=== PATIENT | male | born 1960 | race Caucasian/White ===

== ENCOUNTER 2020-10-26 05:22 | Observation (INO) ==
--- NOTE | 2020-08-20 15:47 | PAT Medication Instructions ---
Medication Instructions Date of Service August 20, 2020 Home Medications metformin 1,000 mg tablet 1,000 mg PO BID paroxetine HCl 30 mg tablet 30 mg PO QAM aspirin [Aspir-81] 81 mg PO HS atorvastatin [Lipitor] 40 mg PO HS ezetimibe [Zetia] 10 mg PO HS lisinopril 2.5 mg PO QAM DO NOT take the morning of surgery lisinopril 2.5 mg PO QAM metformin 1,000 mg tablet 1,000 mg PO BID Take morning of surgery With a small sip of water, OTHERWISE NOTHING TO EAT OR DRINK AFTER MIDNIGHT: paroxetine HCl 30 mg tablet 30 mg PO QAM Take evening before surgery metformin 1,000 mg tablet 1,000 mg PO BID aspirin [Aspir-81] 81 mg PO HS (unless surgeon directs otherwise) atorvastatin [Lipitor] 40 mg PO HS ezetimibe [Zetia] 10 mg PO HS Other Notes If you have any questions please call us at [phone] or [phone] or or [phone]
--- NOTE | 2020-08-22 11:07 | Anesthesiology Consultation ---
Date of Service August 22, 2020 Assessment & Plan (1) Encounter for pre-operative examination: Chart Review Chart Review: Acceptable Risk for Surgery (pending preop Covid testing results ) and Patient seen in Pre Admission Testing - Check BSG AM DOS Per PAT appointment 08/22/2020, patient resides in [facility]. Local travel only. No known Covid infection in the past 90 days. Patient vaccinated for Covid. No known Covid positive contacts or Covid related symptoms. Preop Covid testing scheduled 10/02/20= will await results. Educated on importance of self quarantining, social distancing and wearing mask in public both for the patient after Covid testing done Teaching & Discussion Pre-Anesthesia Teaching/Discussion Notes: Instructed NPO after midnight before surgery,except medications with 15 cc of water. Medication instructions provided according to the [facility] guidelines. History Surgery Operation Date: 10/04/20 07:30 Proposed Procedures p Right Total Knee Arthroplasty - Nikc Mohr MD Height/Weight Height: 5 ft 8 in Weight: 99.9 kg Allergies Allergy/AdvReac Type Severity Reaction Status Date / Time shrimp Allergy Mild Vomiting Verified 08/20/20 14:50 lobster Allergy Mild Vomiting Uncoded 08/20/20 14:50 Medications Home Medications Medication Instructions Recorded Confirmed Last Taken metformin 1,000 mg tablet 1,000 mg PO BID 06/23/19 08/20/20 Unknown paroxetine HCl 30 mg tablet (Paxil) 30 mg PO QAM 06/23/19 08/20/20 Unknown aspirin 81 mg tablet,delayed 81 mg PO HS 08/20/20 08/20/20 Unknown release atorvastatin 40 mg tablet (Lipitor) 40 mg PO HS 08/20/20 08/20/20 Unknown ezetimibe 10 mg tablet (Zetia) 10 mg PO HS 08/20/20 08/20/20 Unknown lisinopril 2.5 mg tablet 2.5 mg PO QAM 08/20/20 08/20/20 Unknown Past Medical History Medical History Anxiety Diabetes mellitus, type 2 Glucose stable Fatty liver History of COVID-19 diagnosed 12/2019 @ State testing site @ [place]--loss of taste and smell, sinus issues--no issues now Sleep apnea cpap Tinnitus of left ear Exercise / Class Metabolic Activity II 4-5 Yardwork/Stairs/Walk up hill (one flight of stairs - no chest pain or SOB ) Past Family History Family History Other No family history of adverse response to anesthesia Past Surgical History Surgical History History of adenoidectomy History of cholecystectomy History of colonoscopy History of knee surgery right knee cap History of partial thyroidectomy right side removed d/t goiter History of shoulder surgery bilateral shoulders History of wisdom tooth extraction Past Anesthesia History No Hx of Anesthesia Complications and No Family Hx of Anesthesia Complications History of PONV No Hx of PONV and No Hx of Motion Sickness Social History Smoking Status: Former smoker tobacco type: smokeless tobacco Do You Dip or Chew Tobacco: Yes (1 can every 3 days) Smoking End Date: quit 20yrs ago Hx Alcohol Use: Yes alcohol intake frequency: a few times a week Hx Substance Use: No substance use type: does not use Review of Systems Rare reflux Patient denies chest pain, shortness of breath, dyspnea on exertion, cough, wheezing, palpitations. No hx of seizures, stroke, NH. No hx of blood clots or blood transfusions Physical Exam Vital Signs VITALS BP 134/81 P 68 TEMP 98.4 SP02 97% RESP 16 Constitutional no acute distress ENMT Mouth: no TMJ clicking Thyromental Distance: > or= 3.5 Finger Breadths (3.5) Mallampati Class: III Neck + limited neck extension (significant ) and + facial hair (advised patient to shave/trim sharma ) Respiratory normal respiratory effort; no respiratory distress Auscultation: lungs clear to auscultation bilaterally; no wheezes Cardiovascular Rate/Rhythm: regular rate and regular rhythm Heart Sounds: no murmur Vessels: no carotid bruit Musculoskeletal Spine: no pain with cervical ROM Extremities: extremities normal to inspection Psychiatric Orientation: alert Lab Results Anesthesia Preop Results Results Anesthesia Widget: WBC 6.61 K/uL (4.8-10.8) 08/22/20 Hgb 13.3 g/dL (14.0-18.0) L 08/22/20 Hct 39.1 % (42-52) L 08/22/20 Plt 192 K/uL (130-400) 08/22/20 Na 139 mmol/L (136-145) 08/22/20 K 4.1 mmol/L (3.5-5.1) 08/22/20 Cl 108 mmol/L (98-107) H 08/22/20 CO2 27 mmol/L (21-32) 08/22/20 BUN 16 mg/dl (7-18) 08/22/20 Creat 1.08 mg/dl (0.6-1.4) 08/22/20 Glucose Level 220 mg/dl (70-99) H 08/22/20 PT 10.4 Seconds (9.0-12.0) 08/22/20 PTT 25.6 Seconds (21.0-31.0) 08/22/20 INR 1.0 (0.9-1.1) 08/22/20 HA1c 7.3 % (4.5-5.6) H 08/22/20 Urine Color Yellow 08/22/20 Urine Appearance Clear (Clear) 08/22/20 Urine pH 6.5 (4.5-7.5) 08/22/20 Urine Specific [place] 1.022 (1.000-1.030) 08/22/20 Urine Protein Negative (Negative) 08/22/20 Urine Glucose (UA) 3+ (Negative) H 08/22/20 Urine Ketones Negative (Negative) 08/22/20 Urine Blood Negative (Negative) 08/22/20 Urine Nitrite Negative (Negative) 08/22/20 Urine Bilirubin Negative (Negative) 08/22/20 Urine Urobilinogen Negative (Negative) 08/22/20 Urine Leukocyte Esterase Negative (Negative) 08/22/20 Blood Type A Positive 08/22/20 Antibody Screen NEGATIVE 08/22/20 Lab Comments: Surgeon's office informed of glucose Testing Electrocardiogram Date: 08/22/20 Findings: + SB @ (59bpm) Otherwise normal EKG per cardio. Chest X-Ray Date: 08/22/20 Findings: + NAD
--- NOTE | 2020-09-28 15:12 | History and Physical Report ---
DATE OF ADMISSION: 10/04/2020 CHIEF COMPLAINT: Bilateral knee pain and discomfort, right side greater than left. HISTORY OF PRESENT ILLNESS: The patient is a 60-year-old gentleman who has had a several-year histor y of increasing bilateral knee pain and discomfort. He has been through extensive conservative treat ment including injections, which were pretty successful initially, but become less successful over ti me. Both knees hurt. The right knee bothers him more than the left. He would like to consider a singletary rgical intervention. He would like to proceed with the right knee. Pain is mostly medial, but some global pain. The more he is up and on his knee, the more it hurts. He does have a history of open k nee surgery on this side 20 years ago. PAST MEDICAL HISTORY: 1. Elevated cholesterol. 2. Sleep apnea with CPAP machine. 3. Anxiety. 4. Diabetes x11 years. ALLERGIES: None. CURRENT MEDICATIONS: Include, 1. Metformin. 2. Zetia. 3. Lipitor. 4. Lisinopril. 5. Paroxetine. SOCIAL HISTORY: Significant for a 60-year-old gentleman. He is from [place]. He works for [employer]. . One drink per week. Chews snuff. FAMILY HISTORY: Significant for diabetes. REVIEW OF SYSTEMS: Significant for diabetes for 10 or 11 years. A1c is 7.3. No chest pain or short ness of breath. No history of DVT or PE. He does have sleep apnea. PHYSICAL EXAMINATION: GENERAL: Shows a pleasant middle-aged male. Looks to be in reasonably good health. HEENT: Benign. NECK: Supple, no lymphadenopathy. LUNGS: Clear to auscultation. HEART: Has a regular rate and rhythm. ABDOMEN: Soft, nontender, nondistended. EXTREMITIES: Grossly neurovascularly intact except as follows: Examination of both knees revealed p atient ambulates independently. He limps a little bit more on the right knee. He has got varus alig nment to the right knee with bony hypertrophy medially. Small knee effusion. Range of motion about 5-125. No instability. Examination of the left knee reveals slight varus alignment. Minimal knee effusion. Tender to palpa tion medially. Range of motion 0-125. No instability. X-RAYS: X-rays of the right knee reveal advanced right knee DJD. He has got near complete loss of h is medial joint space. He has got subchondral sclerosis. He has got osteophytes primarily medially. The right knee is worse than the left. ASSESSMENT: A 60-year-old male with bilateral knee degenerative joint disease, right side greater th an left. He feels like the left side is still manageable, but the right knee is incapacitating. He would like to have his right knee fixed. PLAN: We will take him to the operating room and do a right knee replacement. The risks and benefit s of this procedure explained to the patient include but not limited to DVT, PE, , infection, ne urological injury, vascular injury, bleeding problem, pain, limited range of motion, stiffness, failu re to relieve his symptoms, incomplete relief of symptoms, need for further surgery in the future, fr acture, leg length inequality, nerve palsy, etc. The patient understands and desires to proceed. In formed consent was obtained. We did talk about holding his metformin on the morning of surgery. He is planning to be discharged t o home using the home health program. Job ID: [id number]
[~2020-10-26 05:22] MED LIST: ACETAMINOPHEN 500 MG TAB PO SCH; BUPIVACAINE LIPOSOME/PF 266 MG, BUPIVACAINE/EPINEPHRINE 50 ML, SODIUM CHLORIDE 0.9% 30 ... INFIL SCH; FAMOTIDINE 20 MG TAB PO SCH; GABAPENTIN 600 MG DOSE PO SCH; LR 500ML BOLUS, THEN 15ML/HR IV SCH; LR 60ML/HR IV SCH; METOCLOPRAMIDE HCL 10 MG TABLET PO SCH; Scopolamine 1 MG TDSY TD SCH; Scopolamine CHECK PATCH PLACEMENT SCH; TRANEXAMIC ACID 1,000 MG **IV Intra-op IV SCH; ceFAZolin 2000MG 2,000 MG/15 ML SYR IV SCH
[2020-10-26] MEDS ORDERED: LR 60ML/HR IV SCH (06:00)
[2020-10-26] MEDS ORDERED: ceFAZolin 2000MG 2,000 MG/15 ML SYR IV SCH (06:00)
[2020-10-26] MEDS ORDERED: GABAPENTIN 600 MG DOSE PO SCH (06:00)
[2020-10-26] MEDS ORDERED: METOCLOPRAMIDE HCL 10 MG TABLET PO SCH (06:00)
[2020-10-26] MEDS ORDERED: TRANEXAMIC ACID 1,000 MG **IV Intra-op IV SCH (06:00)
[2020-10-26] MEDS ORDERED: BUPIVACAINE LIPOSOME/PF 266 MG, BUPIVACAINE/EPINEPHRINE 50 ML, SODIUM CHLORIDE 0.9% 30 ... INFIL SCH (06:00)
[2020-10-26] MEDS ORDERED: FAMOTIDINE 20 MG TAB PO SCH (06:00)
[2020-10-26] MEDS ORDERED: LR 500ML BOLUS, THEN 15ML/HR IV SCH (06:00)
[2020-10-26] MEDS ORDERED: ACETAMINOPHEN 500 MG TAB PO SCH (06:00)
[2020-10-26] MEDS ORDERED: Scopolamine 1 MG TDSY TD SCH (06:00)
[2020-10-26] MEDS ORDERED: EPINEPHrine INJ 1 MG/ML AMP ONE ×2 (06:28→06:46)
[2020-10-26] MEDS ORDERED: BUPIVACAINE 0.5 % 5 MG/1 ML PF 10ML VIAL ONE (06:28)
[2020-10-26] MEDS ORDERED: ROPIVACAINE 0.5% 5 MG/ML 30 ML VIAL ONE (06:29)
[2020-10-26] MEDS ORDERED: MIDAZOLAM HCL 1 MG/ML 2ML VIAL ONE (06:37)
[2020-10-26] MEDS ORDERED: fentaNYL citrate 100 MCG/2 ML VIAL ONE (06:37)
[2020-10-26] MEDS ORDERED: BUPIVACAINE LIPOSOME 1.3% 266 MG/20 ML VIAL ONE (06:45)
[2020-10-26] MEDS ORDERED: SODIUM CHLORIDE 0.9% PF 50 ML VIAL ONE (06:45)
[2020-10-26] MEDS ORDERED: BUPIVACAINE 0.25% 30 ML VIAL ONE (06:46)
--- NOTE | 2020-10-26 07:05 | History & Physical Bridge Note ---
Date of Service October 26, 2020 History & Physical Bridge Note I have examined the patient, reviewed the History & Physical and in the interval since the performance of the History & Physical I have noted the following changes of clinical significance: no changes noted
[2020-10-26] MEDS ORDERED: ePHEDrine sulfate 50 MG/ML AMP IV PRN (07:43)
[2020-10-26] MEDS ORDERED: fentaNYL citrate 100 MCG/2 ML VIAL IV PRN (07:43)
[2020-10-26] MEDS ORDERED: ONDANSETRON INJ 2 MG/ML 2 ML VIAL IV PRN ×2 (07:43→10:17)
[2020-10-26] MEDS ORDERED: MEPERIDINE HCL 25 MG/ML CARP/VIAL IV PRN (07:43)
[2020-10-26] MEDS ORDERED: HYDROmorphone INJ 1 MG/ML SYRINGE IV PRN (07:43)
[2020-10-26] MEDS ORDERED: PHENYLEPHRINE 100MCG/ML 5ML SYR IV PRN (07:43)
[2020-10-26] MEDS ORDERED: LABETALOL HCL IV 5 MG/ML 20ML IV PRN (07:43)
[2020-10-26] MEDS ORDERED: ATROPINE SULFATE 0.1 MG/ML 10ML SYR IV PRN (07:43)
[2020-10-26] MEDS ORDERED: PROPOFOL IV EMULSION 10 MG/ML 20 ML VIAL IV ONE (07:53)
--- NOTE | 2020-10-26 09:11 | Operative Report ---
Post Operative Report Pre & Post Diagnosis Operation Date: 10/04/20 08:50 <No data on this case meets the specified criteria> Operation Date: 10/26/20 07:00 Pre-Op Diagnosis: Right Knee DJD, Right Knee Pain Post-Op Diagnosis: Right Knee DJD, Right Knee Pain I identified the patient and participated in the time-out.: Yes Procedure Operation Date: 10/04/20 08:50 <No data on this case meets the specified criteria> Operation Date: 10/26/20 07:00 Actual Procedures p Right Total Knee Arthroplasty(Right) - Nick Mohr MD Surgeon Nick Mohr MD Service Control Operator Leonardo Katz PA-C Estimated Blood Loss 50 Findings Consistent with Post-Op Diagnosis Operative findings were advanced right knee DJD. Extensive grade 4 [id number] disease of the medial compartment with eburnation. He had a varus deformity to his knee and a pretty stiff knee with only about 100 degrees of flexion. Moderate-sized joint effusion. The slight flexion contracture of 10 degrees. Fluids 1500 cc Specimens Right knee sent for pathology. Drains None. Anesthesia Type Spinal MAC Complications none Disposition Accompanied Patient To Recovery: No Indications Patient is 60-year-old gentleman is had a long history of right knee pain discomfort is gradually gotten worse over time. He failed conservative measures. X-rays showed advanced medial compartment arthritis. He had a very stiff knee. Patient indicated for total knee arthroplasty. Description of Procedure Operative implants consist of: 1. Biomet Vanguard size 75 right posterior stabilized femoral component. 2. Biomet size 83 tibial tray. 3. 12 mm posterior stabilized polyethylene insert. 4. 37 x 10 all polypatella. The patient was taken to the operating, identified, placed on the operating table supine position but a contractors were properly padded. IV antibiotics tried by anesthesia team. A spinal anesthetic and abductor canal block had provided holding area. Doll catheter was placed in sterile fashion. Right thigh turn was then placed in the right lower extremities and prepped draped in usual sterile fashion. The right leg was elevated exsanguinated with use of an Esmarch and turns placed at 300 mmHg. An anterior approach to the right knee was then performed through a longitudinal incision centered over the patella. Sharp dissection Through subcutaneous is down to the extensor mechanism. A medial parapatellar arthrotomy incision was made. Some subperiosteal dissection was carried out medially. The fat pad was resected from each patella tendon. Lateral patellofemoral ligament was released. Patella was subluxated laterally and the knee was flexed. The osteophytes were taken off distal femur. The ACL and PCL were then released and distal femur the tibia subluxated anteriorly. The external tibial alignment exam placed in the interface the tibia and adjusted about 16 mm medially. Proximal tibial cut was made remove about 2 mm of bone from the most deficient aspect medial tibial plateau. The tibia was then sized to a size 83. Attention drawn the femur. The distal femur exam with a sharp drop with intramedullary canal was suction. A right 6 degree valgus cutting guide was placed. Distal femoral cutting block was pinned in place. Distal femoral cut was made to take an additional 3 mm bone off distal femur. The femur was then sized to a size 75. The AP cutting block was pinned parallel to the epicondylar axis which was 3 degrees of external rotation. The anterior cut, anterior chamfer, posterior cut, posterior chamfer cuts were made. The box cutting guide was placed in just slight lateral box cut was made. The knee was flexed. The remnants of the medial and lateral menisci were excised. The osteophytes were taken off the posterior aspect of the femur. A trial femoral component was placed. The tibial tray was pinned in maximum external rotation and the drill was done punch used to create defect in proximal tibia for the tibial tray. Knee was then trialed and the 12 mm insert fit most appropriately. Attention drawn the patella. Nupathe the patella was cleaned of all soft tissues. Patella thickness measured 25 mm in thickness cut down to 15. Was sized to a size 37 patella. The lug holes were drilled for the 37 patella. The lateral osteophyte is moved. Patella button was placed. Knee was taken through range of motion patella tracked nicely with no thumbs test. Attention drawn to placing permanent components. Nupathe all trial components were removed. Bone plug was placed in the distal femur limit blood loss put a double batch [place] G cement was mixed. A Biomet Vanguard size 75 right posterior stabilized femoral component, a size 83 tibial tray, 12 mm posterior stabilized polyethylene insert, and a 37 x 10 all polypatella were then cemented in place. Knee was brought out in full extension total cement hardened. Final cement check was then performed. The pericapsular tissues were injected with total 100 cc of combination of 20 cc of Exparel, 30 cc normal saline, 50 cc of quarter percent Marcaine with epinephrine. Patient did receive 1 g tranexamic acid. The tourniquet was then let down for tourniquet time 59 minutes. Hemostasis assured use electrocautery. Extensor neck was then closed with combination 1 PDS suture #1 Vicryl suture in [id number] fashion. Extensor mechanism checked found to be intact with subcutaneous tissue then closed with 2 Dexon suture in a buried interrupted fashion skin was closed skin deborah. Leg was then cleaned dried a sterile dressing was Xeroform, 4 x 4's, sterile cast padding, Pranay bandage were applied. Patient then transferred to the recovery room in stable condition. Patient tolerated procedure well and there were no complications. Leonardo Katz, my physician painter assistant, was present for the entire procedure. His assistance was essential and required for appropriate patient positioning, prepping and draping, surgical exposure, performing the technical details of the operation, placement the implants, closure of the wound, and placement of the sterile bandage. I attest to the content of the Intraoperative Record and any orders documented therein. Any exceptions are noted below.
[2020-10-26] MEDS ORDERED: HYDROmorphone INJ 0.5 MG/0.5 ML SYR IV PRN (10:17)
[2020-10-26] MEDS ORDERED: oxyCODONE HCL IR 5 MG TAB (IMMEDIATE RELEASE) PO PRN (10:17)
[2020-10-26] MEDS ORDERED: MAGNESIUM HYDROXIDE SUSP 30 ML UDC PO PRN (10:17)
[2020-10-26] MEDS ORDERED: TAMSULOSIN HCL 0.4 MG CAP PO PRN (10:17)
[2020-10-26] MEDS ORDERED: NALOXONE HCL 0.4 MG/1 ML VIAL/CARP IV PRN (10:17)
[2020-10-26] MEDS ORDERED: METOCLOPRAMIDE HCL INJ 5 MG/ML 2 ML VIAL IV PRN (10:17)
[2020-10-26] MEDS ORDERED: ALUMINUM/MAGNESIUM SUSP 30 ML UDC PO PRN (10:17)
[2020-10-26] MEDS ORDERED: SODIUM CHLORIDE 0.9% 1000ML 1,000 ML IV SCH (10:17)
[2020-10-26] MEDS ORDERED: diphenhydrAMINE Capsule 25 MG CAP PO PRN (10:17)
[2020-10-26] MEDS ORDERED: PHARMACY GLYCEMIC MGMT CONSULT PRN (10:17)
[2020-10-26] MEDS ORDERED: bisacodyL 10 MG SUPP PR PRN (10:17)
--- NOTE | 2020-10-26 10:17 | Anesthesiology Progress Note ---
Date of Service October 26, 2020 Anesthesia Post Procedure Vital Signs Vital Signs: Temp Pulse Pulse Resp BP Pulse Ox 10/26/20 10:05 36.8 C 48 L 12 113/61 97 10/26/20 09:55 36.8 C 47 L 12 115/64 96 10/26/20 09:45 50 L 14 106/61 97 10/26/20 09:35 59 L 13 110/69 96 10/26/20 09:25 50 L 12 104/70 96 10/26/20 09:15 51 L 13 116/72 96 10/26/20 09:07 36.3 C L 53 L 12 125/77 98 10/26/20 06:18 36.5 C 57 L 18 144/75 H 96 Transfer of Care Handoff Completed per policy Notes Mental Status: alert / awake / arousable Patient Amnestic to Procedure: Yes Nausea / Vomiting: adequately controlled Pain: adequately controlled Airway Patency, RR, SpO2: stable & adequate BP & HR: stable & adequate Hydration State: stable & adequate Anesthetic Complications: no major complications apparent and Pt Satisfied with anesthetic care
--- NOTE | 2020-10-26 10:51 | XRay Report ---
XR knee RT 1 or 2V routine CLINICAL HISTORY: Postoperative evaluation. COMPARISON: Knee radiographs July 04, 2020. FINDINGS: Alignment of the total right knee arthroplasty is anatomic. No periprosthetic fracture or unexpected radiopaque foreign body. There are skin deborah. IMPRESSION: Expected findings following total right knee arthroplasty. ACT 112: Negative or not required by law. Electronically signed by: Alex Perkins M.D. 10/26/2020 10:50 AM
[2020-10-26] MEDS ORDERED: DEXTROSE 50% 50 ML SYRINGE IV PRN (11:00)
[2020-10-26] MEDS ORDERED: GLUCOSE 10 TABS/TUBE PO PRN (11:00)
[2020-10-26] MEDS ORDERED: GLUCOSE 40% GEL 15 GM TUBE PO PRN (11:00)
[2020-10-26] MEDS ORDERED: GLUCAGON FOR INJ 1 MG VIAL IM PRN (11:00)
[2020-10-26] MEDS ORDERED: CARBOHYDRATES FOR HYPOGLYCEMIA PO PRN (11:00)
[2020-10-26] MEDS ORDERED: INSULIN GLARGINE SOLOSTAR 100 UNITS/ML 3 ML PEN SC ONE ×2 (11:30→12:30)
[2020-10-26] MEDS: KETOROLAC 30 MG/ML VIAL IV SCH ×3 (12:59→23:17)
[2020-10-26] MEDS: ACETAMINOPHEN 500 MG TAB PO SCH ×2 (12:59→21:47)
--- NOTE | 2020-10-26 13:09 | Pharmacy Report ---
Pharmacy Glycemic Short Note 2 - Date of Service October 26, 2020 - Glycemic Short BSG Results (Last 24 hours): 10/26/20 10/26/20 10/26/20 05:45 09:11 12:13 POC Glucose 165 H 161 H 112 H OUTPATIENT ANTIDIABETIC REGIMEN: * Metformin 1000 mg PO BIDM * HbA1c: 7.3% (08/22/20) ASSESSMENT: * MS is a 60 year old male POD #0 s/p right total knee arthroplasty * No perioperative steroids administered * Preop BSG of 165 mg/dL and postop BSG of 112 mg/dL * Will give 0.1 unit/kg dose of Lantus and weight-based Novolog PLAN FOR INPATIENT GLYCEMIC CONTROL: * Hold outpatient oral diabetes medications * Consider resuming metformin in AM * Basal insulin * Lantus 10 units SQ daily * Bolus insulin * NovoLog per scale ACHS or Q6hrs while NPO * Goal Range: Low 110 mg/dL - High 140 mg/dL * Correction Factor: 25 mg/dL/unit * Nutritional / Prandial insulin per carb ratio of 1 unit per 8 grams CHO consumed PLAN FOR DISCHARGE: * HbA1c is slightly above goal of less than 7% * Reasonable to continue metformin on discharge * Support patient self-management * Healthy Lifestyle (diet, exercise, and smoking cessation) * Disease self-management (SMBG) * Prevention of complications (BP, Lipid goals, Immunizations) * Consider outpatient Diabetes Self-Management Education & Support
[2020-10-26] MEDS: INSULIN ASPART 100 UNITS/ML 3 ML PEN SC SCH ×3 (13:21→20:45)
[2020-10-26] MEDS ORDERED: TRANEXAMIC ACID / 0.7% NACL 1,000 MG/100 ML BAG IV SCH (16:00)
[2020-10-26] MEDS: ASCORBIC ACID 500 MG TAB PO SCH (17:08)
[2020-10-26] MEDS: ceFAZolin 2000MG 2,000 MG/15 ML SYR IV SCH ×2 (17:08→23:17)
[2020-10-26] MEDS: Scopolamine CHECK PATCH PLACEMENT SCH ×2 (17:08→23:17)
[2020-10-26] MEDS: ASPIRIN 81 MG ECTAB PO SCH (20:44)
[2020-10-26] MEDS: TAPENTADOL HCL ER 50 MG TABCR PO SCH (20:44)
[2020-10-26] MEDS: DOCUSATE SODIUM 100 MG CAP PO SCH (20:44)
[2020-10-26] MEDS ORDERED: ATORVASTATIN 40 MG TAB PO SCH (21:00)
[2020-10-26] MEDS ORDERED: SENNA 8.6 MG TAB PO SCH (21:00)
[2020-10-26] MEDS ORDERED: EZETIMIBE 10 MG TABLET PO SCH (21:00)
[2020-10-27] MEDS: ACETAMINOPHEN 500 MG TAB PO SCH (05:51)
[2020-10-27] MEDS: KETOROLAC 30 MG/ML VIAL IV SCH (05:52)
[2020-10-27 05:59] LABS: Hematocrit (blood only) 27.4 % (42-52); Hemoglobin 9.1 g/dL (14.0-18.0); Mean Corpuscular Hemoglobin 29.4 pg (25-34); Mean Corpuscular Hgb Conc 33.2 g/dL (32-36); Mean Corpuscular Volume 88.4 fL (80-100); Mean Platelet Volume 11.1 fL (7.4-10.4); Platelet Count 158 K/uL (130-400); RDW Standard Deviation 41.8 fL (36.4-46.3); White Blood Count 11.17 K/uL (4.8-10.8)
[2020-10-27 06:26] LABS: BUN Creatinine Ratio 13.8 (10-20); Calcium 8.4 mg/dl (8.5-10.1); Creatinine Clr Calc Pharmacy 87.8 ml/min; Est GFR (African American) 91.5 ml/min; Potassium 4.1 mmol/L (3.5-5.1)
[2020-10-27] MEDS: ASPIRIN 81 MG ECTAB PO SCH (08:55)
[2020-10-27] MEDS: ASCORBIC ACID 500 MG TAB PO SCH (08:55)
[2020-10-27] MEDS: DOCUSATE SODIUM 100 MG CAP PO SCH (08:55)
[2020-10-27] MEDS: Scopolamine CHECK PATCH PLACEMENT SCH (08:56)
[2020-10-27] MEDS: INSULIN ASPART 100 UNITS/ML 3 ML PEN SC SCH (08:58)
[2020-10-27] MEDS ORDERED: INSULIN GLARGINE SOLOSTAR 100 UNITS/ML 3 ML PEN SC SCH (09:00)
[2020-10-27] MEDS ORDERED: lisinopril 2.5 MG TAB PO SCH (09:00)
[2020-10-27] MEDS ORDERED: MULTIVITAMIN TAB PO SCH (09:00)
[2020-10-27] MEDS ORDERED: PARoxetine HCL 20 MG TAB PO SCH (09:00)
[2020-10-27] MEDS: TAPENTADOL HCL ER 50 MG TABCR PO SCH (09:01)
--- NOTE | 2020-10-27 09:07 | Progress Notes ---
DATE OF SERVICE: 10/27/2020. SUBJECTIVE: A 60-year-old gentleman postoperative day 1 from right knee replacement. He is doing we ll. Pain has been controlled. He had a pretty good night. No chest pain or shortness of breath. N ot feeling dizzy or lightheaded. He is hoping to go home today. OBJECTIVE: VITAL SIGNS: Temperature is 36.9. Vital signs are stable. GENERAL: Shows a pleasant middle-aged male. Sitting up on bed, looks comfortable this morning. LUNGS: Clear to auscultation. HEART: Has a regular rate and rhythm. ABDOMEN: Soft, nontender, nondistended. EXTREMITIES: Grossly neurovascularly intact except as follows. Examination of the right leg reveals the leg in dressing to be kept clean, dry and intact. Leg is we ll aligned. No drainage. He can dorsiflex and plantarflex his foot appropriately. He can do a stra ight leg raise. LABORATORY DATA: Hemoglobin 11.17. Hematocrit 9.1. Hematocrit 27.9. Electrolytes are stable. ASSESSMENT: A 60-year-old gentleman postoperative day 1 from right knee replacement, doing pretty we ll. Pain is controlled. He is neurologically intact. Mildly anemic, but asymptomatic. PLAN: 1. DVT prophylaxis include thigh-high TEDs, SCDs, and aspirin twice a day. 2. PT, OT, weightbear as tolerated. Right total knee protocol. 3. Pain control, doing well with current pain regimen. 4. Disposition: Plan to discharge to home with some home health likely later today after therapy. Job ID: [id number]
--- NOTE | 2020-11-05 07:55 | Discharge Summary ---
Date of Service November 05, 2020 Discharge Data Procedures Performed Operation Date: 10/04/20 08:50 <No data on this case meets the specified criteria> Operation Date: 10/26/20 07:00 Actual Procedures p Right Total Knee Arthroplasty(Right) - Nick Mohr MD Hospital Course (1) Status post total right knee replacement: Haim is a 60 year old patient admitted on 10/26/20 and underwent total knee arthroplasty. He tolerated the procedure well and there were no complications. Transferred to the PACU post op and later to the orthopedic floor for further care. He was given ancef for antibiotic prophylaxis. He was also given AJ stockings, SCDs, and aspirin for DVT prophylaxis. Hemoglobin, hematocrit, and vital signs were monitored during his hospital stay and remained stable. Did not require any blood transfusions. There were no complications during his hospital stay. By post op day #1 the patient was tolerating a diabetic diet, pain was r easonably controlled with oral pain medicine, and he was participating in physical therapy. On post op day #1 the patient was discharged home and set up with home health care. He was given printed discharge instructions including prescriptions for extra strength tylenol, aspirin, and oxycodone. Continue physical therapy, weight bearing as tolerated. Continue AJ stockings. Follow up approximately 2 weeks post op or sooner if there are problems or concerns. Coding Level of Care Code None Diagnoses Status post total right knee replacement Z96.651
== END 2020-10-27 11:20 | disposition home health service (06) ==
LOC: 3E 05:22 → ASU 05:22